=== PATIENT | female | born 1960 | race Caucasian/White ===

== ENCOUNTER 2016-12-28 21:09 | Emergency (ER) | payer MEDICAID ==
[2016-12-28] MEDS ORDERED: CYCLOBENZAPRINE 10 MG TABLET PO STA (22:36)
[2016-12-28] MEDS ORDERED: BUPIVACAINE 0.5% PF 30 ML VIAL SUBQ STA (22:36)
[2016-12-28] MEDS ORDERED: HYDROcod/ACET 5/325 Prepack 6 PO ONE ×2 (22:38→22:41)
[2016-12-28] MEDS ORDERED: LIDOCAINE PATCH 5% TOP STA (22:39)
[2016-12-28] MEDS ORDERED: CYCLOBENZAPRINE 10 MG TABLET PO ONE (22:41)
[2016-12-28] MEDS ORDERED: LIDOCAINE PATCH 5% TOP ONE (22:41)
[2016-12-28] MEDS ORDERED: BUPIVACAINE 0.25% PF 30 ML VIAL ONE (22:57)
[2016-12-28] MEDS ORDERED: DEXAMETHASONE 10 MG/ML VIAL ONE (23:06)
[2016-12-28] MEDS ORDERED: CHERRY SYRUP 10 ML UDC PO ONE (23:06)
== END 2016-12-28 23:53 | disposition home or self-care (01) ==
DX: M54.41 Lumbago with sciatica, right side (principal)
CPT/HCPCS: 20552; 99283; 99284; A9270

== ENCOUNTER 2017-01-20 13:42 | Emergency (ER) | payer MEDICAID | END 2017-01-20 17:02 | disposition home or self-care (01) | DX: M54.31 Sciatica, right side (principal); E11.65 Type 2 diabetes mellitus with hyperglycemia; Z79.84 Long term (current) use of oral hypoglycemic drugs ==

== ENCOUNTER 2018-04-11 13:13 | Emergency (ER) | payer MEDICAID ==
--- NOTE | 2018-04-11 15:25 | XRAY Report ---
Procedure Date: 04/11/2018 Accession Number: [id number] / [id number] Procedure: XR - Ankle 3 View LT CPT Code: FULL RESULT: EXAM: LEFT ANKLE RADIOGRAPHY EXAM DATE: 04/11/2018 03:12 PM. CLINICAL HISTORY: Ankle injury yesterday. COMPARISON: None. TECHNIQUE: 3 views. FINDINGS: Bones: Normal. No fractures or bone lesions. Joints: Normal. No effusion. No subluxations. The ankle mortise is normally aligned. Soft Tissues: There is a corticated ossification inferior to the fibula. IMPRESSION: No acute fracture or subluxation. [facility]
[2018-04-11 15:46] VITALS: BP 141/74
--- NOTE | 2018-04-11 15:46 | XRAY Report ---
Procedure Date: 04/11/2018 Accession Number: [id number] / [id number] Procedure: XR - Foot 3 View LT CPT Code: FULL RESULT: EXAM: LEFT FOOT RADIOGRAPHY EXAM DATE: 04/11/2018 03:12 PM. CLINICAL HISTORY: Injury. COMPARISON: None. TECHNIQUE: 3 views. FINDINGS: Bones: There is a mild contour irregularity of the distal diaphysis of the fifth metatarsal. There is no cortical step-off or other finding of an acute fracture. Joints: Normal. No subluxations. Soft Tissues: There is soft tissue swelling of the lateral foot. IMPRESSION: 1. No definite acute fracture. Mild contour irregularity distal fifth metatarsal may reflect old injury or developmental variant [facility]
[2018-04-11] MEDS ORDERED: ACETAMINOPHEN 325 MG TABLET PO STA (16:11)
[2018-04-11] MEDS ORDERED: IBUPROFEN 400 MG TABLET PO STA (16:11)
--- NOTE | 2018-04-11 16:14 | ED Physician Documentation ---
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 - Present Medications Home Medications: Ambulatory Orders Medication Instructions Recorded Confirmed Glipizide 5 mg PO DAILY 01/20/17 01/20/17 HYDROcod/ACETAM 5/325 [[place] 5/325] 1 - 2 ea PO Q6H PRN #20 tablet 01/20/17 Pioglitazone [Actos] 15 mg PO DAILY 01/20/17 01/20/17 Venlafaxine [Effexor] 37.5 mg PO DAILY 01/20/17 01/20/17 busPIRone [Buspar] 5 mg PO DAILY 01/20/17 01/20/17 metFORMIN [Glucophage] 2,000 mg PO DAILY 01/20/17 01/20/17 traZODone [Desyrel] 50 mg PO DAILY 01/20/17 01/20/17 HYDROcod/ACETAM 5/325 [[place] 5/325] 1 ea PO Q6H PRN #10 tablet 04/11/18 Ibuprofen [Motrin] 400 mg PO Q6H PRN #30 tablet 04/11/18 - Allergies Allergies/Adverse Reactions: Allergies Allergy/AdvReac Type Severity Reaction Status Date / Time No Known Drug Allergies Allergy Verified 04/11/18 13:32 - Social History Does the pt smoke?: No Smoking Status: Never smoker Does the pt drink ETOH?: No Does the pt have substance abuse?: No - Immunizations Immunizations are current?: No Immunizations: TDAP >10years/unknown - POLST Patient has POLST: No PD ED PE NORMAL - Vitals Vital signs reviewed: Yes - Extremities Extremities: Other (knee and tib fib NT, tenderness and swelling to mid foot, MSV intact, no open wounds) - Neuro Neuro: Alert and oriented X 3, No motor deficit, No sensory deficit Results - Vitals Vitals: Vital Signs - 24 hr 04/11/18 04/11/18 13:26 15:46 Temperature 36.5 C Heart Rate 81 74 Respiratory 18 18 Rate Blood Pressure 116/69 141/74 H O2 Saturation 99 100 Oxygen O2 Source Room air - Rads (name of study) ankle Radiology: See rad report (no acute fx or sublux) foot Radiology: See rad report (no acute, mild irreg distal 5th MT may be old injury (not site of pain)) Procedures - Splint (location) LLE Splint applied by: Nurse Type of splint: Fiberglass, Short leg, Posterior Other: Patient tolerated well, Neurovascular intact, Crutches provided, Other PD MEDICAL DECISION MAKING - ED course ED course: exam raises concern for Lis Susan will splint pt and non wt bearing on crutches and dc to fup ortho for further eval and imaging such as MRI - Sepsis Event Vital Signs: Vital Signs - 24 hr 04/11/18 04/11/18 13:26 15:46 Temperature 36.5 C Heart Rate 81 74 Respiratory 18 18 Rate Blood Pressure 116/69 141/74 H O2 Saturation 99 100 Oxygen O2 Source Room air Departure - Departure Disposition: 01 Home, Self Care Clinical Impression: Foot injury Qualifiers: Encounter type: initial encounter Laterality: left Qualified Code(s): S99.922A - Unspecified injury of left foot, initial encounter Condition: Good Instructions: Lisfranc Joint Injury Tx Follow-Up: Lady Fitzgerald MD [Primary Care Provider] - [facility] [Provider Group] Prescriptions: HYDROcod/ACETAM 5/325 [[place] 5/325] 1 ea PO Q6H PRN #10 tablet PRN Reason: Severe Pain Ibuprofen [Motrin] 400 mg PO Q6H PRN #30 tablet PRN Reason: Pain Comments: The xrays do not show any new fractures but the mechanism of injury and the site of your pain have me concerned you may have a ligament injury of the mid foot called a LisFrank You will need further evaluation by orthopedics In the mean time it is important that you do not bear weight at all - use the crutches and wear the splint Motrin for mild pain Hydrocodone only if needed for very severe pain Forms: Activity restrictions
== END 2018-04-11 17:20 | disposition home or self-care (01) ==
LOC: ED 13:13
DX: S99.922A Unspecified injury of left foot, initial encounter (principal); X50.9XXA Other and unspecified overexertion or strenuous movements or postures, initial encounter; Y93.01 Activity, walking, marching and hiking; W19.XXXA Unspecified fall, initial encounter; E11.9 Type 2 diabetes mellitus without complications
CPT/HCPCS: 29515; 99283

== ENCOUNTER 2018-04-27 07:46 | Outpatient (CLI) | payer MEDICAID ==
--- NOTE | 2018-04-27 16:15 | MRI Report ---
Procedure Date: 04/27/2018 Accession Number: [id number] / [id number] Procedure: MRI - Foot LT W/O CPT Code: FULL RESULT: EXAM: LEFT MIDFOOT MRI WITHOUT CONTRAST EXAM DATE: 04/27/2018 08:38 AM. CLINICAL HISTORY: Left foot pain after injury. COMPARISON: FOOT 3 VIEW LT 04/11/2018. TECHNIQUE: Multiplanar, multisequence T1-weighted and fluid-sensitive sequences of the midfoot without contrast. Other: None. FINDINGS: Bones and articular cartilage: Marrow edema at the distal medial and distal lateral aspects of the medial cuneiform, distal dorsal aspect of the middle cuneiform, distal dorsal aspect of the lateral cuneiform, dorsal, plantar, and lateral aspects of the first metatarsal base, proximal one-half to two-thirds of the second metatarsal, proximal one-third of the third metatarsal, proximal one-third of the fourth metatarsal. There is a linear hypointense focus within the base of the second metatarsal suspicious for a nondisplaced fracture. No bone lesions. Articular cartilage is within normal limits. Ligaments: The visualized intertarsal, intermetatarsal, and tarsometatarsal ligaments are intact. This includes the Lisfranc ligament. The visualized collateral ligaments are intact. Tendons: The flexor and extensor tendons are unremarkable. Musculature: Minimal edema within the extensor digitorum brevis muscle. Mild edema within the first and second interosseous muscles. Other: No effusions. The visualized portion of the tarsal tunnel is unremarkable. Small amount of fluid at the first intermetatarsal bursa. Small amount of fluid at the third intermetatarsal bursa. Subcutaneous edema and mild swelling at the dorsal aspect of the midfoot. IMPRESSION: 1. Bone contusions at the medial cuneiform, middle cuneiform, lateral cuneiform, first metatarsal base, proximal to mid aspects of the second metatarsal, proximal aspect of the third metatarsal, and proximal aspect of the fourth metatarsal. There is a linear hypointense focus within the base of the second metatarsal suspicious for nondisplaced fracture. 2. No evidence of ligament injury at the midfoot. However, assessment for midfoot instability with dynamic testing on physical exam is suggested. 3. Mild edema within the first and second interosseous muscles and minimal edema within the extensor digitorum brevis muscle which may represent strain or inflammation. 4. Small amount of fluid at the first and third intermetatarsal bursae. [facility] MUSCULOSKELETAL RADIOLOGY SECTION
== END 2018-04-27 07:47 | disposition home or self-care (01) ==
LOC: DI 07:46
PROVIDERS: ATTEND Orthopaedic Surgery
DX: M24.275 Disorder of ligament, left foot (principal); S90.32XA Contusion of left foot, initial encounter

== ENCOUNTER 2018-05-24 08:00 | Outpatient (CLI) | payer MEDICAID ==
[2018-05-24 18:51] LABS: BASOPHILS % (AUTO) 0.7 %; EOSINOPHILS # (AUTO) 0.1 10^3/uL (0.0-0.7); EOSINOPHILS % (AUTO) 0.9 %; HGB - HEMOGLOBIN 13.9 g/dL (12.0-16.0); LYMPHOCYTES # (AUTO) 1.3 10^3/uL (1.5-3.5); LYMPHOCYTES % (AUTO) 20.5 %; MEAN CORPUSCULAR HEMOGLOBIN 29.2 pg (27.0-31.0); MEAN CORPUSCULAR HGB CONC 32.6 g/dL (32.0-36.0); MEAN CORPUSCULAR VOLUME 89.5 fL (81.0-99.0); MEAN PLATELET VOLUME 8.6 fL (7.9-10.8); MONOCYTES # (AUTO) 0.5 10^3/uL (0.0-1.0); MONOCYTES % (AUTO) 8.3 %; NEUTROPHILS # (AUTO) 4.4 10^3/uL (1.5-6.6); NEUTROPHILS % (AUTO) 69.6 %; PLT - PLATELET COUNT 269 10^3/uL (130-450); RED BLOOD COUNT 4.76 10^6/uL (4.20-5.40); RED CELL DISTRIBUTION WIDTH 22.6 % (12.0-15.0); WHITE BLOOD COUNT 6.4 x10^3/uL (4.8-10.8)
[2018-05-24 19:12] LABS: PLATELET ESTIMATE, MANUAL NORMAL (130-450,000) (NORMAL); PLATELET MORPHOLOGY NORMAL APPEARANCE (NORMAL); RBC MORPHOLOGY (MULTIPLE) 2+ ANISOCYTOSIS (NORMAL); THYROID STIMULATING HORMONE 2.62 uIU/mL (0.34-5.60)
[2018-05-24 19:19] LABS: % IRON SATURATION 13 % (20-50); IRON 51 ug/dL (28-170); TOTAL IRON BINDING CAPACITY 381 ug/dL (250-450); TRANSFERRIN 272 mg/dL (192-382)
[2018-05-24 19:20] LABS: FERRITIN 35.9 ng/mL (11.0-306.8)
[2018-05-24 19:23] LABS: FOLATE 18.84 ng/mL (5.90 - >24.8)
== END 2018-06-24 23:59 | disposition home or self-care (01) ==
LOC: LAB.N 08:00
PROVIDERS: ATTEND Nurse Practitioner
DX: E55.9 Vitamin D deficiency, unspecified (principal); D64.9 Anemia, unspecified; E11.40 Type 2 diabetes mellitus with diabetic neuropathy, unspecified
CPT/HCPCS: 36415; 82306; 82607; 82728; 82746; 83540; 84443; 84466; 85025

== ENCOUNTER 2018-06-06 13:09 | Outpatient (CLI) | payer MEDICAID ==
--- NOTE | 2018-06-07 10:01 | DEXA Report ---
Reason: BONE DISORDER,GROUP HOME BISPHOSPHONATE THERAPY Procedure Date: 06/06/2018 Accession Number: [id number] / [id number] Procedure: DEX - Dexa Spine and/or Hip CPT Code: FULL RESULT: EXAM: Dexa Spine and/or Hip DATE: 06/06/2018 2:34 PM CLINICAL HISTORY: BONE DISORDER,GROUP HOME BISPHOSPHONATE THERAPY TECHNIQUE: Dual energy x-ray absorptiometry (DXA) was performed on a [employer] System. Regions measured are the AP Spine, femoral neck, and if needed forearm. COMPARISON: None. In accordance with the International Society for Clinical Densitometry (ISCD) guidelines, data from previous exams may be reanalyzed using current recommendations and techniques. This is done to allow a more accurate basis for comparison with the current study. FINDINGS: The data for the lumbar spine is as follows: BMD (g/cm/cm) T-SCORE Z-SCORE REGION L1 0.972 -1.3 0.2 L2 1.147 -0.4 1.1 L3 1.485 2.4 3.9 L4 1.501 2.5 4.0 TOTAL 1.292 0.9 2.4 NOTE: All evaluable vertebrae are used for classification The data for the hip is as follows: BMD (g/cm/cm) T-SCORE Z-SCORE REGION Neck 0.666 -2.7 -1.2 TOTAL 0.761 -2.0 -0.8 NOTE: The femoral neck or total proximal femur, whichever is lowest, is used for classification. IMPRESSION: THE WHO CLASSIFICATION BASED ON THE INTERNATIONAL REFERENCE STANDARD IS OSTEOPOROSIS. THE FRACTURE RISK IS INCREASED. RECOMMENDATION: Patients with diagnosis of osteoporosis or osteopenia should have regular bone mineral density assessment. For those eligible for Medicare, routine testing is allowed once every 2 years. Testing frequency can be increased for patients who have rapidly progressing disease or for those who are receiving medical therapy to restore bone mass. COMMENT: World Health Organization (WHO) definitions for osteoporosis and osteopenia: NORMAL BMD: T-score at -1.0 or higher, fracture risk is low OSTEOPENIA BMD: T-score between -1.0 and -2.5, fracture risk is increased. OSTEOPOROSIS BMD: T-score at -2.5 or lower, fracture risk is high. National Osteoporosis Foundation recommends: 1. Obtain adequate dietary calcium (at least 1200 mg per day) and vitamin D (400-800 international units per day). 2. Participate, as appropriate, in regular weightbearing and muscle-strengthening exercise. 3. Avoid tobacco use and reduce alcohol and caffeine intake. 4. For more detailed information see the website at www.NOF.org.
== END 2018-06-06 13:10 | disposition home or self-care (01) ==
LOC: DI 13:09
PROVIDERS: ATTEND Nurse Practitioner
DX: M81.0 Age-related osteoporosis without current pathological fracture (principal); Z79.83 Long term (current) use of bisphosphonates
CPT/HCPCS: 77080

== ENCOUNTER 2018-07-08 15:27 | Outpatient (CLI) | payer MEDICAID | END 2018-07-08 15:28 | disposition EMS.NT | LOC: EMS 15:27 | PROVIDERS: ATTEND Surgery | DX: R41.0 Disorientation, unspecified (principal); R73.09 Other abnormal glucose ==

== ENCOUNTER 2018-10-15 14:52 | Outpatient (CLI) | payer MEDICAID | END 2018-10-15 14:53 | disposition short-term general hospital (02) | LOC: EMS 14:52 | PROVIDERS: ATTEND Surgery | DX: R11.2 Nausea with vomiting, unspecified (principal); R10.9 Unspecified abdominal pain | CPT/HCPCS: A0425; A0427; A0999 ==

== ENCOUNTER 2018-11-12 10:56 | Outpatient (CLI) | payer MEDICAID | END 2018-11-12 10:57 | disposition short-term general hospital (02) | LOC: EMS 10:56 | PROVIDERS: ATTEND Surgery | DX: R10.9 Unspecified abdominal pain (principal); R11.0 Nausea | CPT/HCPCS: A0425; A0427; A0999 ==

== ENCOUNTER 2019-01-10 08:00 | Outpatient (CLI) | payer MEDICAID ==
[2019-01-10 19:24] LABS: ALBUMIN 3.8 g/dL (3.2-5.5); ALBUMIN/GLOBULIN RATIO 1.1 (1.0-2.2); ALKALINE PHOSPHATASE 73 IU/L (42-121); ALT ALANINE AMINOTRANSFERASE 25 IU/L (10-60); AST ASPARTATE AMINOTRANSFERASE 28 IU/L (10-42); BILIRUBIN,TOTAL 0.5 mg/dL (0.2-1.0); BUN - BLOOD UREA NITROGEN 13 mg/dL (6-20); CALCIUM 8.8 mg/dL (8.5-10.3); CARBON DIOXIDE - CO2 25 mmol/L (21-32); CHLORIDE 103 mmol/L (101-111); CHOL/HDL RATIO 2.9 (<4.4); CHOLESTEROL 209 mg/dL; CREATININE 0.5 mg/dL (0.4-1.0); GFR - MDRD 127 (>89); GLUCOSE 143 mg/dL (70-100); HDL CHOLESTEROL 71 mg/dL; LDL CHOLESTEROL,CALCULATED 126 mg/dL; LDL/HDL RATIO 1.8 (<4.4); SODIUM 137 mmol/L (135-145); TOTAL PROTEIN 7.4 g/dL (6.7-8.2); VLDL CHOLESTEROL 12 mg/dL
[2019-01-10 20:10] LABS: HB2 TOTAL 14.1 g/dL; HEMOGLOBIN A1C 0.78 g/dL; HEMOGLOBIN A1C % 7.2 % (4.6-6.2)
== END 2019-01-10 23:59 | disposition home or self-care (01) ==
LOC: LAB.N 08:00
PROVIDERS: ATTEND Nurse Practitioner
DX: E11.40 Type 2 diabetes mellitus with diabetic neuropathy, unspecified (principal)
CPT/HCPCS: 36415; 80053; 80061; 82043; 83036; 83721; 84443

== ENCOUNTER 2019-02-09 11:31 | Outpatient (CLI) | payer MEDICAID | END 2019-02-09 11:32 | disposition short-term general hospital (02) | LOC: EMS 11:31 | PROVIDERS: ATTEND Surgery | DX: R10.10 Upper abdominal pain, unspecified (principal); R11.2 Nausea with vomiting, unspecified; R19.7 Diarrhea, unspecified ==

== ENCOUNTER 2019-02-09 16:54 | Outpatient (CLI) | payer MEDICAID | END 2019-02-09 16:55 | disposition short-term general hospital (02) | LOC: EMS 16:54 | PROVIDERS: ATTEND Surgery | DX: R10.9 Unspecified abdominal pain (principal); R11.10 Vomiting, unspecified ==

== ENCOUNTER 2019-06-27 12:35 | Outpatient (CLI) | payer MEDICAID | END 2019-06-27 12:36 | disposition short-term general hospital (02) | LOC: EMS 12:35 | PROVIDERS: ATTEND Surgery | DX: R10.9 Unspecified abdominal pain (principal); R11.2 Nausea with vomiting, unspecified | CPT/HCPCS: A0425; A0427; A0999 ==

== ENCOUNTER 2023-01-31 22:37 | Outpatient (CLI) | payer MEDICARE | END 2023-01-31 22:38 | disposition EMS.NT | LOC: EMS 22:37 | DX: E11.649 Type 2 diabetes mellitus with hypoglycemia without coma (principal) ==

== ENCOUNTER 2023-09-12 17:15 | Outpatient (CLI) | payer MEDICARE | END 2023-09-12 23:59 | disposition critical access hospital (66) | LOC: EMS 17:15 | DX: M54.9 Dorsalgia, unspecified (principal); W01.0XXA Fall on same level from slipping, tripping and stumbling without subsequent striking against object, initial encounter; Y92.009 Unspecified place in unspecified non-institutional (private) residence as the place of occurrence of the external cause; R73.9 Hyperglycemia, unspecified; R00.0 Tachycardia, unspecified | CPT/HCPCS: A0425; A0429 ==

== ENCOUNTER 2023-09-12 17:46 | Emergency (ER) | payer MEDICARE ==
[2023-09-12] MEDS ORDERED: SODIUM CHLORIDE 0.9% 1,000 ML IV STA (17:58)
--- NOTE | 2023-09-12 18:00 | ED Physician Documentation ---
History of Present Illness - Stated complaint Stated Complaint: FALL/BACK PX - Chief complaint Chief Complaint: Trauma Ch/Bk - History obtained from History obtained from: Patient, EMS - History of Present Illness Timing: Today Pain level max: 7 Pain level now: 7 - Additonal information Additional information: 63-year-old female brought in by EMS after a ground-level fall at home. She states that approximately 3 weeks ago she had a lower thoracic and lumbar spinal fusion at [facility] with Dr. Wasserman. No numbness or tingling. No headache. No neck pain. She states that her pain is not worse than usual. She just wants to ensure that the hardware was not damaged or knocked out of place. She also states that her blood sugars have been higher than usual at home. She denies any dysuria but does have urinary frequency. No abdominal pain, nausea, vomiting. No chest pain. No shortness of breath. Patient is not on blood thinners. No loss of bowel or bladder control. 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 - Present Medications Home Medications: Ambulatory Orders Medication Instructions Recorded Confirmed traZODone [Desyrel] 100 mg PO DAILY 01/20/17 02/21/20 Atorvastatin [Lipitor] 20 mg ORAL DAILY 08/09/18 09/12/23 Insulin Glargine [Lantus Solostar] 0 unit SQ DAILY 08/09/18 09/12/23 Venlafaxine ER [Effexor ER] 150 mg PO DAILY 08/09/18 09/12/23 lisinopriL [Lisinopril] 2.5 mg PO DAILY 08/09/18 09/12/23 Celecoxib 1 cap PO DAILY 09/12/23 09/12/23 Metoprolol Succinate [Toprol Xl] 1 tab PO DAILY 09/12/23 09/12/23 cephALEXin [Keflex] 500 mg PO Q6H #28 cap 09/12/23 hydrOXYzine HCL [Hydroxyzine HCl] 1 tab PO DAILY 09/12/23 09/12/23 - Allergies Allergies/Adverse Reactions: Allergies Allergy/AdvReac Type Severity Reaction Status Date / Time No Known Drug Allergies Allergy Verified 09/12/23 17:50 - Social History Does the pt smoke?: No Smoking Status: Never smoker Does the pt drink ETOH?: No Does the pt have substance abuse?: No - Immunizations Immunizations are current?: No Immunizations: TDAP >10years/unknown - POLST Patient has POLST: No PD ED PE NORMAL - Vitals Vital signs reviewed: Yes - General General: Alert and oriented X 3, No acute distress - HEENT HEENT: PERRL, Moist mucous membranes - Neck Neck: Supple, no meningeal sign - Cardiac Cardiac: RRR, Strong equal pulses - Respiratory Respiratory: No respiratory distress, Clear bilaterally - Abdomen Abdomen: Soft, Non tender, Non distended - Back Back: Other (Her bandages over her surgical incisions are clean, dry, intact. 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 Normal great toe extension bilaterally. no saddle anesthesia) Eye Opening: Spontaneous Motor: Obeys Commands Verbal: Oriented GCS Score: 15 - Psych Psych: Normal mood, Normal affect Results - Vitals Vitals: Vital Signs - 24 hr 09/12/23 09/12/23 17:50 19:52 Temperature 36.8 C Heart Rate 98 87 Respiratory 16 22 Rate Blood Pressure 122/85 H 112/74 O2 Saturation 100 99 Oxygen O2 Source Room air - Labs Labs: Laboratory Tests 09/12/23 09/12/23 09/12/23 18:30 18:30 18:30 WBC 10.2 RBC 2.97 L Hgb 8.4 L Hct 27.6 L MCV 92.9 MCH 28.3 MCHC 30.4 L RDW 15.1 H Plt Count 604 H MPV 9.6 Neut # (Auto) 7.9 H Lymph # (Auto) 1.0 L [place] # (Auto) 1.2 H Eos # (Auto) 0.0 Baso # (Auto) 0.0 Absolute Nucleated RBC 0.00 Nucleated RBC % 0.0 VBG pH 7.378 VBG pCO2 46.4 VBG pO2 33.2 VBG HCO3 26.7 VBG Total CO2 28.1 VBG O2 Saturation 62.3 VBG Base Excess 1.2 Sodium 126 L Potassium 4.2 Chloride 89 L Carbon Dioxide 28 Anion Gap 9.0 BUN 10 Creatinine 0.7 Estimated GFR (MDRD) 85 L Glucose 432 H Calcium 9.0 Total Bilirubin 1.0 AST 32 ALT 17 Alkaline Phosphatase 251 H Total Protein 7.1 Albumin 3.4 Globulin 3.7 Albumin/Globulin Ratio 0.9 L Lipase < 10 L Urine Color Urine Clarity Urine pH Ur Specific [place] Urine Protein Urine Glucose (UA) Urine Ketones Urine Occult Blood Urine Nitrite Urine Bilirubin Urine Urobilinogen Ur Leukocyte Esterase Urine RBC Urine WBC Ur Squamous Epith Cells Urine Bacteria Ur Microscopic Review Urine Culture Comments Serum Ketones NEGATIVE 09/12/23 18:57 WBC RBC Hgb Hct MCV MCH MCHC RDW Plt Count MPV Neut # (Auto) Lymph # (Auto) [place] # (Auto) Eos # (Auto) Baso # (Auto) Absolute Nucleated RBC Nucleated RBC % VBG pH VBG pCO2 VBG pO2 VBG HCO3 VBG Total CO2 VBG O2 Saturation VBG Base Excess Sodium Potassium Chloride Carbon Dioxide Anion Gap BUN Creatinine Estimated GFR (MDRD) Glucose Calcium Total Bilirubin AST ALT Alkaline Phosphatase Total Protein Albumin Globulin Albumin/Globulin Ratio Lipase Urine Color YELLOW Urine Clarity SL. CLOUDY Urine pH 6.0 Ur Specific [place] <=1.005 Urine Protein NEGATIVE Urine Glucose (UA) >=1000 H Urine Ketones NEGATIVE Urine Occult Blood NEGATIVE Urine Nitrite POSITIVE H Urine Bilirubin NEGATIVE Urine Urobilinogen 1 (NORMAL) Ur Leukocyte Esterase SMALL H Urine RBC 0-5 Urine WBC 11-25 H Ur Squamous Epith Cells FEW Squamous Urine Bacteria Many H Ur Microscopic Review INDICATED Urine Culture Comments INDICATED Serum Ketones - Rads (name of study) Thoracolumbar spine x-ray Relevant Findings:: Final report received, See rad report PD Medical Decision Making - ED course Complexity details: reviewed results, re-evaluated patient, considered differential, d/w patient Reviewed Lab Results: No acute findings on x-ray. Hardware in place. No evidence of acute fracture. Pain well-controlled with a dose of IV Dilaudid. She is on morphine at home. No focal neurological deficits. No acute neurological deficits. Her blood sugar was significantly elevated. Given IV fluids and insulin. Blood sugar decreased. Patient is eating and drinking without difficulty. She does have a UTI and was given IV Rocephin. Will place her on oral antibiotics for home. No evidence of pyelonephritis. Abdomen is soft, nontender nondistended on serial exam. Blood sugar was down to 294 at the time of discharge. She does have mild anemia, she states that this is chronic. Patient also has pseudohyponatremia secondary to hyperglycemia. Corrected sodium is 131-134 before IV fluids. Patient counseled regarding signs and symptoms for which I believe and urgent re-evaluation would be necessary. Patient with good understanding of and agreement to plan and is comfortable going home at this time This document was made in part using voice recognition software. While efforts are made to proofread this document, sound alike and grammatical errors may occur. Departure - Departure Disposition: Home, Self Care Clinical Impression: Diabetes mellitus with hyperglycemia Qualifiers: Diabetes mellitus type: other specified (including LENORE) Diabetes mellitus mcfp insulin use: unspecified mcfp insulin use status Qualified Code(s): E13.65 - Other specified diabetes mellitus with hyperglycemia Back pain Qualifiers: Back pain location: low back pain Chronicity: chronic Back pain laterality: bilateral Sciatica presence: without sciatica Qualified Code(s): M54.50 - Low back pain, unspecified Condition: Good Instructions: ED Chronic Pain Management, ED Hyperglycemia Diabetic Follow-Up: Efrain Vázquez MD [Physician No Access] - [facility] [Primary Care Provider] - Prescriptions: cephALEXin [Keflex] 500 mg PO Q6H #28 cap Comments: Your prescription was sent to [facility] in [place]. Please take all antibiotics until gone. You do have a bladder infection and were given a dose of IV antibiotics here tonight. This may help explain the elevation of your blood sugar as well. Please make sure you are taking all of your medications as prescribed. Please contact your spine surgeon for further care of your back. Your hardware is intact on imaging tonight. There is no evidence of loosening or breakage. Forms: PCP List Discharge Date/Time: 09/12/23 20:58
[2023-09-12] MEDS ORDERED: HYDROmorphone 1 MG/ML CARPUJECT IVP STA (18:35)
[2023-09-12 18:44] LABS: BASOPHILS % (AUTO) 0.3 %; EOSINOPHILS % (AUTO) 0.2 %; HCT - HEMATOCRIT 27.6 % (37.0-47.0); HGB - HEMOGLOBIN 8.4 g/dL (12.0-16.0); LYMPHOCYTES % (AUTO) 9.9 %; MEAN CORPUSCULAR HEMOGLOBIN 28.3 pg (27.0-31.0); MEAN CORPUSCULAR HGB CONC 30.4 g/dL (32.0-36.0); MEAN CORPUSCULAR VOLUME 92.9 fL (81.0-99.0); MEAN PLATELET VOLUME 9.6 fL (7.9-10.8); MONOCYTES # (AUTO) 1.2 10^3/uL (0.0-1.0); MONOCYTES % (AUTO) 11.4 %; NEUTROPHILS # (AUTO) 7.9 10^3/uL (1.5-6.6); NEUTROPHILS % (AUTO) 77.6 %; PLT - PLATELET COUNT 604 10^3/uL (130-450); RED BLOOD COUNT 2.97 10^6/uL (4.20-5.40); RED CELL DISTRIBUTION WIDTH 15.1 % (12.0-15.0); WHITE BLOOD COUNT 10.2 x10^3/uL (4.8-10.8)
[2023-09-12 18:47] LABS: VBG BASE EXCESS 1.2 mmol/L (-2 - +2); VBG HCO3 26.7 mmol/L (23-28); VBG OXYGEN SATURATION 62.3 % (60-80); VBG PCO2 46.4 mmHg (41-51); VBG PH 7.378 (7.31-7.41); VBG PO2 33.2 mmHg (25-47); VBG TOTAL CO2 28.1 mmol/L (24-29)
--- NOTE | 2023-09-12 18:53 | XRAY Report ---
PROCEDURE: ThoracoLumbar 2 View INDICATIONS: s/p fusion at [facility] 2 weeks ago, fall today TECHNIQUE: 2 views acquired of the thoracolumbar spine. COMPARISON: No comparison is available at time of dictation. FINDINGS: Bones: Status post thoracolumbar posterior fixation with intervertebral disc spacers. Hardware appear s intact. No evidence of hardware complication. No vertebral body compression fractures. Soft tissues: No suspicious soft tissue calcifications. IMPRESSION: No acute osseous abnormality. If there is clinical concern for acute fracture, recommend further eval uation with cross-sectional imaging such as CT. Reviewed by: Deepali Márquez MD on 09/12/2023 6:51 PM PST Approved by: Deepali Márquez MD on 09/12/2023 6:51 PM PST Station ID: [id number]
[2023-09-12 19:02] LABS: ALBUMIN 3.4 g/dL (3.2-5.5); ALBUMIN/GLOBULIN RATIO 0.9 (1.0-2.2); ALKALINE PHOSPHATASE 251 IU/L (42-121); ALT ALANINE AMINOTRANSFERASE 17 IU/L (10-60); AST ASPARTATE AMINOTRANSFERASE 32 IU/L (10-42); BUN - BLOOD UREA NITROGEN 10 mg/dL (6-20); CARBON DIOXIDE - CO2 28 mmol/L (21-32); CHLORIDE 89 mmol/L (101-111); CREATININE 0.7 mg/dL (0.6-1.3); GFR - MDRD 85 (>89); GLUCOSE 432 mg/dL (74-104); POTASSIUM 4.2 mmol/L (3.5-4.5); SODIUM 126 mmol/L (135-145); TOTAL PROTEIN 7.1 g/dL (6.4-8.9)
[2023-09-12 19:03] LABS: LIPASE < 10 U/L (11-82)
[2023-09-12] MEDS ORDERED: INSULIN REGULAR HUMAN 300 UNIT/3 ML VIAL SUBQ STA (19:03)
[2023-09-12 19:05] LABS: KETONES, SERUM (ACETEST) NEGATIVE (NEGATIVE)
[2023-09-12 19:10] LABS: BILIRUBIN,URINE NEGATIVE (NEGATIVE); GLUCOSE, URINE (UA) >=1000 mg/dL (NEGATIVE); KETONES,URINE (UA) NEGATIVE (NEGATIVE); LEUKOCYTE ESTERASE, URINE SMALL (NEGATIVE); NITRITE,URINE POSITIVE (NEGATIVE); OCCULT BLOOD,URINE NEGATIVE (NEGATIVE); PROTEIN,URINE NEGATIVE (NEGATIVE); UROBILINOGEN,URINE 1 (NORMAL) E.U./dL (NORMAL)
[2023-09-12 19:13] LABS: CLARITY,URINE SL. CLOUDY (CLEAR)
[2023-09-12 19:16] LABS: BACTERIA,URINE Many /HPF (None Seen); RBC,URINE 0-5 /HPF (0-5); SQUAMOUS EPITHELIAL CELL,UR FEW Squamous (<= Few)
[2023-09-12] MEDS ORDERED: cefTRIAXone 1 GM VIAL IVP STA (20:18)
[2023-09-12 21:01] VITALS: BP 112/74; O2SAT 99
== END 2023-09-12 20:58 | disposition home or self-care (01) ==
LOC: EDBD → EDUNIT# → ED 17:46
DX: M54.50 Low back pain, unspecified (principal); W18.30XA Fall on same level, unspecified, initial encounter; Y92.009 Unspecified place in unspecified non-institutional (private) residence as the place of occurrence of the external cause; E11.65 Type 2 diabetes mellitus with hyperglycemia; Z79.4 Long term (current) use of insulin; Z79.899 Other long term (current) drug therapy
CPT/HCPCS: 36415; 72080; 80053; 81001; 82009; 82803; 83690; 85025; 87077; 87086; 87181; 96374; 96375; 99283; 99284; J1170; J1815; 81003

== ENCOUNTER 2023-10-02 08:13 | Outpatient (CLI) | payer MEDICARE, OTHER | END 2023-10-02 23:59 | disposition short-term general hospital (02) | LOC: EMS 08:13 | DX: M54.6 Pain in thoracic spine (principal); M54.50 Low back pain, unspecified; R25.2 Cramp and spasm | CPT/HCPCS: A0425; A0427 ==

== ENCOUNTER 2023-12-05 05:15 | Outpatient (CLI) | payer MEDICARE | END 2023-12-05 23:59 | disposition short-term general hospital (02) | LOC: EMS 05:15 | DX: M54.50 Low back pain, unspecified (principal); R10.9 Unspecified abdominal pain | CPT/HCPCS: A0425; A0429 ==

== ENCOUNTER 2023-12-08 19:22 | Outpatient (CLI) | payer MEDICARE | END 2023-12-08 23:59 | disposition short-term general hospital (02) | LOC: EMS 19:22 | DX: R40.4 Transient alteration of awareness (principal) | CPT/HCPCS: A0425; A0433 ==